=== PATIENT | female | born 1945 ===

== ENCOUNTER 2018-02-10 12:18 | Outpatient (CLI) | payer OTHER | END 2018-02-10 12:25 | disposition home or self-care (01) | LOC: RAD 12:18 | DX: Z01.818 Encounter for other preprocedural examination (principal) ==

== ENCOUNTER → 2018-02-10 | Outpatient (CLI) | payer OTHER ==
[~2018-02-10] MED LIST: BRAIN MIGHT-DH1 EACH PO; CENTRUM SILVER1 EAC2 PO; OMEGA 3 FISH OI1 CAP PO
== END | disposition home or self-care (01) ==
LOC: EKG 13:43
DX: Z01.810 Encounter for preprocedural cardiovascular examination (principal)

== ENCOUNTER → 2018-03-03 | Day surgery (SDC) | payer OTHER ==
[~2018-03-03] MED LIST changes: +ATIVAN0.5 MG PO; +FENOFIBRATE134 MG PO; +LEXAPRO5 MG PO
== END | disposition home or self-care (01) ==
LOC: ADM 02-26 12:30 → CIR.AMB 06:50
DX: K43.2 Incisional hernia without obstruction or gangrene (principal)

== ENCOUNTER 2018-03-07 04:28 | Emergency (ER) | payer OTHER ==
[~2018-03-07] VITALS: Ht 157.5 cm; Wt 52.2 kg
== END 2018-03-07 10:56 | disposition home or self-care (01) ==
LOC: ER 04:28
DX: G89.18 Other acute postprocedural pain (principal); R10.13 Epigastric pain; K29.60 Other gastritis without bleeding